=== PATIENT | male | born 1985 | race Caucasian/White ===

== ENCOUNTER 2023-09-08 14:43 | Emergency (ER) | payer OTHER ==
[~2023-09-08] VITALS: Ht 195.5 cm; Wt 136.1 kg
[2023-09-08] MEDS ORDERED: ACETAMINOPHEN 325 MG TAB PO ONE (15:10)
[2023-09-08] MEDS ORDERED: ZESTRIL10 MG PO (15:36)
[2023-09-08] MEDS ORDERED: COLCHICINE0.6 M1 PO (17:09)
[2023-09-08] MEDS ORDERED: PREDNISONE50 MG PO (17:09)
[2023-09-08] MEDS ORDERED: COLCHICINE 0.6 MG TAB PO ONE (17:10)
== END 2023-09-08 17:16 | disposition home or self-care (01) ==
LOC: ED 14:43
DX: H61.23 Impacted cerumen, bilateral (principal); M10.9 Gout, unspecified; I10 Essential (primary) hypertension; Z88.5 Allergy status to narcotic agent

== ENCOUNTER 2023-09-12 15:18 | Emergency (ER) | payer OTHER ==
[~2023-09-12] VITALS: Ht 195.5 cm; Wt 136.1 kg
[~2023-09-12 15:18] MED LIST: COLCHICINE0.6 M1 PO; PREDNISONE50 MG PO; ZESTRIL10 MG PO
[2023-09-12] MEDS ORDERED: MORPHINE Sulfate 2 MG/ML SYR IV ONE (15:35)
[2023-09-12] MEDS ORDERED: Ondansetron Hydrochloride 4 MG/2 ML VIAL IV ONE (15:35)
[2023-09-12] MEDS ORDERED: SODIUM CHLORIDE 0.9% 1,000 ML IV ONE (15:35)
[2023-09-12] MEDS ORDERED: HYDROCODONE-AC1 EAC1 PO (15:45)
[2023-09-12 15:53] LABS: HEMATOCRIT 43.8 % (42.0-52.0); MEAN CELL VOLUME 86.9 fl (80.0-94.0); MEAN CORPUSCULAR HGB 28.8 pg (27.0-31.0); MEAN CORPUSCULAR HGB CONC 33.1 g/dl (33.0-37.0); MEAN PLATELET VOLUME 9.1 fl (9.6-12.3); PLATELET COUNT AUTOMATED 288 10*3/uL (130-400); RED BLOOD COUNT 5.04 10*6/uL (4.50-5.90); RED CELL DISTRI WIDTH 12.4 % (0-14.5)
[2023-09-12 16:05] LABS: MANUAL DIFF REFLEX YES
[2023-09-12 16:15] LABS: ALKALINE PHOSPHATASE 40 U/L (46-116); BUN 8 mg/dl (9-23); CHLORIDE 103 mmol/L (98-107); SGPT/ALT 16 U/L (5-49); TOTAL PROTEIN 7.1 gm/dL (6.0-8.0); URIC ACID 7.3 mg/dL (3.7-9.2)
[2023-09-12 16:21] LABS: PLATELET SUFFICIENCY NORMAL (NORMAL); TOTAL CELLS COUNTED 100 #CELLS
[2023-09-12 16:22] LABS: BURR CELLS FEW
== END 2023-09-12 16:57 | disposition home or self-care (01) ==
LOC: ED 15:18
PROVIDERS: Emergency Medicine
DX: M77.8 Other enthesopathies, not elsewhere classified (principal); M10.9 Gout, unspecified; I10 Essential (primary) hypertension; Z88.5 Allergy status to narcotic agent

== ENCOUNTER 2023-10-30 20:20 | Emergency (ER) | payer OTHER ==
[~2023-10-30] VITALS: Ht 195.5 cm; Wt 136.1 kg
[~2023-10-30 20:20] MED LIST changes: +HYDROCODONE-AC1 EAC1 PO
[2023-10-30] MEDS ORDERED: methylPREDNISolone sod succ 125 MG VIAL IM ONE (21:35)
== END 2023-10-30 21:49 | disposition home or self-care (01) ==
LOC: ED 20:20
DX: M10.9 Gout, unspecified (principal); I10 Essential (primary) hypertension; Z88.5 Allergy status to narcotic agent

== ENCOUNTER 2024-02-16 02:01 | Emergency (ER) | payer OTHER ==
[~2024-02-16] VITALS: Ht 195.5 cm; Wt 124.7 kg
[2024-02-16] MEDS ORDERED: methylPREDNISolone sod succ 125 MG VIAL IM ONE (03:30)
[2024-02-16 05:32] LABS: BUN 10 mg/dl (9-23); CHLORIDE 100 mmol/L (98-107); POTASSIUM 3.8 mmol/L (3.4-5.1)
[2024-02-16] MEDS ORDERED: PREDNISONE50 MG PO (05:48)
[2024-02-16] MEDS ORDERED: COLCHICINE 0.6 MG TAB PO ONE (05:50)
== END 2024-02-16 06:03 | disposition home or self-care (01) ==
LOC: ED 02:01
PROVIDERS: Emergency Medicine
DX: S96.911A Strain of unspecified muscle and tendon at ankle and foot level, right foot, initial encounter (principal); M10.9 Gout, unspecified; I10 Essential (primary) hypertension; Z88.5 Allergy status to narcotic agent; X50.1XXA Overexertion from prolonged static or awkward postures, initial encounter; Y93.01 Activity, walking, marching and hiking; Y92.009 Unspecified place in unspecified non-institutional (private) residence as the place of occurrence of the external cause; Y99.8 Other external cause status

== ENCOUNTER 2024-12-27 18:27 | Emergency (ER) | payer OTHER ==
[~2024-12-27] VITALS: Ht 195.5 cm; Wt 172.4 kg
[2024-12-27] MEDS ORDERED: PREDNISONE20 M1 PO (20:20)
[2024-12-27] MEDS ORDERED: CEPHALEXIN500 M1 PO (20:20)
[2024-12-27] MEDS ORDERED: CEPHALEXIN 500 MG CAP PO ONE (20:20)
== END 2024-12-27 20:47 | disposition home or self-care (01) ==
LOC: ED 18:27
DX: M10.9 Gout, unspecified (principal); I10 Essential (primary) hypertension; Z88.5 Allergy status to narcotic agent; Z98.890 Other specified postprocedural states

== ENCOUNTER 2025-01-07 16:19 | Emergency (ER) | payer OTHER ==
[~2025-01-07] VITALS: Ht 195.5 cm; Wt 158.8 kg
[~2025-01-07 16:19] MED LIST changes: +CEPHALEXIN500 M1 PO; +PREDNISONE20 M1 PO
[2025-01-07] MEDS ORDERED: ACETAMINOPHEN 325 MG TAB PO ONE (17:40)
== END 2025-01-07 18:01 | disposition home or self-care (01) ==
LOC: ED 16:19
DX: U07.1 COVID-19 (principal); Z88.5 Allergy status to narcotic agent